=== PATIENT | male | born 1950 | race Caucasian/White ===

== ENCOUNTER → 2016-09-25 | Outpatient (CLI) | payer MEDICARE, BC ==
--- NOTE | 2016-09-25 15:17 | KCIC ---
EXAM: Renal sonogram. HISTORY: Benign prosthetic hyperplasia. TECHNIQUE: Sonographic imaging of the kidneys and bladder was performed. COMPARISON: None. FINDINGS: The right kidney measures 10.8 cm [id number] and the left kidney measures 11.1 cm [id number]. No solid or cystic renal lesion is seen. The bladder is unremarkable. The ureteral jets are both seen. The prostate measures 4.5 cm in maximum dimension for a total volume of 29 cc. The inferior vena cava and aorta are partially obscured due to bowel gas. IMPRESSION: 1. Sonographically unremarkable kidneys and bladder. 2. Prostate volume of 29 cc. Electronically signed by: Shaila Castillo MD (09/25/2016 3:13 PM) [id number]
== END ==
LOC: KCIC US 08:22
PROVIDERS: ATTEND Urology
DX: N40.0 Benign prostatic hyperplasia without lower urinary tract symptoms (principal)
CPT/HCPCS: 76770